=== PATIENT | female | born 1975 | race Two or more races ===

== ENCOUNTER 2016-11-09 22:56 | Emergency (ER) | payer SELFPAY ==
[2016-11-09] MEDS ORDERED: HYDROcodone/Acetaminophen 10/325 mg Tablet ONE (23:35)
[2016-11-09] MEDS ORDERED: Ibuprofen 800 MG TAB ONE (23:35)
--- NOTE | 2016-11-09 23:47 | RAD ---
LEFT ANKLE THREE VIEWS 11/09/16 Soft tissue swelling is present both medial and laterally. No acute fracture was appreciated. There is irregularity of the medial malleolus and the tip of the lateral malleolus, both of which appear m ore likely old than new. The articular surface of the talus seems smooth. The joint space is normal. IMPRESSION: Suggestion of old trauma to the ankle. Current soft tissue swelling bilaterally. POS: HOME
--- NOTE | 2016-11-10 00:02 | ERRECORD ---
[facility] EMERGENCY RECORD HPI ANKLE (23:28 JPIP) CHIEF COMPLAINT: Patient presents for evaluation of injury, to the left ankle, Patient presents for evaluation of pain, to the left ankle, Patient presents for evaluation of patient states she stepped in a hole and rolled her ankle. +felt a pop. HISTORIAN: History provided by patient. MECHANISM OF INJURY: Known mechanism, Mechanism of injury: stepped in a hole and rolled her ankle. LOCATION: Symptoms are generalized. QUALITY: Pain is dull in nature. SEVERITY: Current severity of pain rated as 6/10. 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 ASSOCIATED WITH: No associated foot pain, No associated hip pain, No associated knee pain, No associated open wounds, Associated with pain with ambulation, No associated proximal injury. EXACERBATED BY: Patient's condition exacerbated by walking, Patient's condition exacerbated by bearing weight. RELIEVED BY: Patient's condition relieved by nothing. ROS (23:29 JPIP) CONSTITUTIONAL: Historian denies chills, denies fever. MUSCULOSKELETAL: Historian reports arthralgias, reports joint stiffness, reports joint swelling, reports myalgias. SKIN: Historian denies rash, denies skin changes, denies skin lesions. NEUROLOGIC: Historian denies paresthesias. NOTES: All systems reviewed, negative except as described above. PAST MEDICAL HISTORY MEDICAL HISTORY: No past medical history. (23:07 SIJO) FEMALE SURGICAL HISTORY: TRACH PLACED AND REMOVED 2009. (23:07 SIJO) PSYCHIATRIC HISTORY: No previous psychiatric history. (23:07 SIJO) SOCIAL HISTORY: Patient denies alcohol use, Patient denies drug use, Patient currently uses tobacco, smokes cigarettes, Patient smokes 1/2 packs per day. (23:07 SIJO) NOTES: Nursing records reviewed, Medication list reviewed. (23:32 JPIP) KNOWN ALLERGIES ALLERGIES: (Unconfirmed) FOOD ALLERGIES: (Unconfirmed) Ibuprofen (Unconfirmed) LATEX ALLERGY? (Unconfirmed) Penicillamine (Unconfirmed) Penicillin G Sodium (Unconfirmed) &a-1R&a+25V*p+0X*k3242Z*c152B*c15G*c2P*p-0X&a-25V&a+1RName: Tiffany Gomez : F40 MedRec: [id number] AcctNum: [id number] Prepared: SatNov 09, 2016 23:59 by Interface Page 1 of 3 pMD [facility] EMERGENCY RECORD Penicillins CURRENT MEDICATIONS (23:06 SIJO) None VITAL SIGNS (23:04 SIJO) VITAL SIGNS: BP: 155/114, Pulse: 92, Resp: 18, Temp: 98.1 (Oral), Pain: 6, O2 sat: 97 on Room Air, Time: 11/09/2016 23:04. PHYSICAL EXAM (23:30 JPIP) CONSTITUTIONAL: Vital Signs Reviewed, Patient afebrile, Pulse normal, Blood pressure, hypertensive, Respiratory rate normal, Patient appears, in mild pain distress, Patient alert and oriented to person, place and time, Nursing notes reviewed. HEAD: Head exam included findings of head atraumatic, normocephalic. NECK: Neck exam included findings of normal range of motion. RESPIRATORY CHEST: Respiratory exam included findings of no respiratory distress. UPPER EXTREMITY: Upper extremity exam included findings of inspection normal, Range of motion normal. LOWER EXTREMITY: Left Ankle:, Ankle swelling, both medial and lateral soft tissue swelling with more swelling laterally, Ankle tenderness, Medial malleolar region, Lateral malleolar region, Ankle active range of motion limited, causes pain, Anlkle passive range of motion limited, causes pain, capillary refill less than 2 seconds, vii. Anterior Drawer Test normal, Left lower leg exam normal, no swelling, no tenderness. NEURO: Neuro exam findings include patient oriented to person, place and time, Speech normal. SKIN: Skin exam included findings of skin warm, dry, and normal in color. PSYCHIATRIC: Psychiatric exam included findings of patient oriented to person place and time, Normal affect. MEDICATION ADMINISTRATION SUMMARY Drug Name: Lemitar, Dose Ordered: 10 mg, Route: Oral, Status: Given, Time: 23:38 11/09/2016, Drug Name: Motrin, Dose Ordered: 800 mg, Route: Oral, Status: Given, Time: 23:37 11/09/2016, Detailed record available in Medication Service section. PROBLEM LIST No recorded problems DIAGNOSIS (23:32 JPIP) FINAL: PRIMARY: LEFT ankle sprain (unspecified). &a-1R&a+25V*p+0X*u3319K*c152B*c15G*c2P*p-0X&a-25V&a+1RName: Tiffany Gomez : F40 MedRec: [id number] AcctNum: [id number] Prepared: SatNov 09, 2016 23:59 by Interface Page 2 of 3 pMD [facility] EMERGENCY RECORD PRESCRIPTION (23:26 JPIP) ibuprofen: TABLET : 800 mg : ORAL : Quantity: 1 Unit: tab(s) Route: ORAL Schedule: every 8 hours PRN Dispense: 30 May substitute. Refills: No Refills . NOTES: No refills. Ultram: TABLET : 50 mg : ORAL : Quantity: 1-2 Unit: tab(s) Route: ORAL Schedule: every 8 hours PRN Dispense: 30 May substitute. Refills: No Refills . NOTES: for pain No refills. DISPOSITION PATIENT: Disposition Type: Discharge, Disposition: *Discharge Home, Condition: Good. (23:32 CARA) Patient left the department. (23:55 NAEL) Bedolla: CARA=DO Adames Joseph SIJO=SARAH Leal, Merrick &a-1R&a+25V*p+0X*q5653W*c152B*c15G*c2P*p-0X&a-25V&a+1RName: Tiffany Gomez : F40 MedRec: [id number] AcctNum: [id number] Prepared: SatNov 09, 2016 23:59 by Interface Page 3 of 3 pMD MTDD
--- NOTE | 2016-11-10 00:07 | PICIS ---
[facility] EMERGENCY RECORD TRIAGE (23:05 SIJO) TRIAGE NOTES: PT STATES SHE STEPPED INTO A HOLE AND FELT A "POP" TO L ANKLE - ANKLE SWOLLEN ON ARRIVAL. (23:05 SIJO) PATIENT: NAME: Tiffany Gomez, AGE: 40, GENDER: female, : Sat1975, TIME OF GREET: SatNov 09, 2016 22:56, PREFERRED LANGUAGE: Urdu, ETHNICITY: Not or , ECODE BILLING MAP: [facility], SSN: [id number], KG WEIGHT: 139.71, PHONE: , , , PERSON ID: [id number], PAYMENT: S[employer] Self Pay, PCP: none. (23:05 SIJO) Zip Code: [address]. (23:07) COMPLAINT: L ANKLE PAIN. (23:05 SIJO) ADMISSION: URGENCY: 4 Non Urgent, ADMISSION SOURCE: Home, TRANSPORT: CAR, BED: ER -04. (23:05 SIJO) IMMUNIZATIONS: Flu vaccine not up to date, Tetanus immunization up to date, Pneumococcal vaccine not up to date. (23:07 SIJO) SIRS SCORING: Heart Rate 55-109 (0), Temp range 96.8-101.1 (0), respiratory rate 12-24 (0), Mental Status altered: no (0), Infection or Suspected Infection: No. (23:07 SIJO) TRIAGE SCREENING: Patient denies suicidal ideation, Patient denies presence of domestic violence. (23:07 SIJO) LMP: Last menstrual period: 10/12/2016. (23:07 SIJO) PROVIDERS: TRIAGE NURSE: Merrick Leal RN. (23:05 SIJO) VITAL SIGNS: BP 155/114, Pulse 92, Resp 18, Temp 98.1, (Oral), Pain 6, O2 Sat 97, on Room Air, Time 11/09/2016 23:04. (23:04 SIJO) PREVIOUS VISIT ALLERGIES: Penicillins. (23:05 SIJO) Penicillins. (23:07 SIJO) KNOWN ALLERGIES ALLERGIES: (Unconfirmed) FOOD ALLERGIES: (Unconfirmed) Ibuprofen (Unconfirmed) LATEX ALLERGY? (Unconfirmed) Penicillamine (Unconfirmed) Penicillin G Sodium (Unconfirmed) Penicillins CURRENT MEDICATIONS (23:06 SIJO) None VITAL SIGNS (23:04 SIJO) VITAL SIGNS: BP: 155/114, Pulse: 92, Resp: 18, Temp: 98.1 (Oral), Pain: 6, O2 sat: 97 on Room Air, Time: 11/09/2016 23:04. NURSING ASSESSMENT: EXTREMITY LOWER (23:08 SIJO) CONSTITUTIONAL: Patient arrives, via hospital wheelchair, Gait steady, History obtained from patient, Patient appears comfortable, Patient cooperative, Patient alert, Oriented to person, place and time, Skin warm, Skin dry, Skin normal in color, Mucous membranes pink, Mucous membranes moist. &a-1R&a+25V*p+0X*f5517N*c152B*c15G*c2P*p-0X&a-25V&a+1RName: Tiffany Gomez : F40 MedRec: [id number] AcctNum: [id number] Prepared: Sat Nov 10, 2016 00:05 by Interface Page 1 of 6 pMD [facility] EMERGENCY RECORD LEFT LOWER EXTREMITY: Left lower extremity assessment findings include capillary refill less than 2 seconds, Skin color normal, Skin temperature warm, Distal sensation intact, Muscle tone normal, +2 edema present, Inspection findings include signs of trauma, Inspection findings include swelling. RIGHT LOWER EXTREMITY: Right lower extremity assessment findings include capillary refill less than 2 seconds, Skin color normal, Skin temperature warm, Distal sensation intact, Muscle tone normal. NURSING PROCEDURE: DISCHARGE NOTE (23:53 SIJO) DISCHARGE: Patient discharged to home, ambulating without assistance, driving self, accompanied by //partner, Simple or moderate discharge teaching performed, RICE-M method discussed - crutch walking, Prescriptions given and instructions on side effects given, Name of prescription(s) given: kaycee chun, Above person(s) verbalized understanding of discharge instructions and follow-up care, Patient treated and evaluated by physician, Notes: Discharge instructions reviewed and signed with good understanding. BELONGINGS: Belongings remain with patient, Valuables remain with patient. ORDER DETAILS Order Name: COLD THERAPY, Status: Done, Time: 23:08 11/09/2016, User: NAEL, - Ordered for: DO Adames Joseph, - Entered by: DO Adames Joseph - SatNov 09, 2016 23:08, - Quantity: 1, Order Name: CRUTCH ACQUISTION AND INSTRUCTION ED, Status: Done, Time: 23:34 11/09/2016, User: NAEL, - Ordered for: DO Adames Joseph, - Entered by: DO Adames Joseph - SatNov 09, 2016 23:26, - Quantity: 1, Order Name: IMMOBILIZE AFFECTED AREA ED, Status: Done, Time: 23:34 11/09/2016, User: NAEL, - Ordered for: DO Adames Joseph, - Entered by: DO Adames Joseph - SatNov 09, 2016 23:26, - Quantity: 1, Order Name: XR Ankle Lt 3 View STANDARD, Status: Active, Time: 23:06 11/09/2016, User: CARA, - Ordered for: DO Adames Joseph, - Entered by: DO Adames Joseph - SatNov 09, 2016 23:06, - Quantity: 1. MEDICATION ADMINISTRATION SUMMARY Drug Name: Dublin, Dose Ordered: 10 mg, Route: Oral, Status: Given, Time: 23:38 11/09/2016, Drug Name: Motrin, Dose Ordered: 800 mg, Route: Oral, Status: Given, Time: 23:37 11/09/2016, Detailed record available in Medication &a-1R&a+25V*p+0X*s1535J*c152B*c15G*c2P*p-0X&a-25V&a+1RName: Tiffany Gomez : F40 MedRec: [id number] AcctNum: [id number] Prepared: Sat Nov 10, 2016 00:05 by Interface Page 2 of 6 pMD [facility] EMERGENCY RECORD Service section. MEDICATION SERVICE Motrin: Order: Motrin (ibuprofen) - Dose: 800 mg : Oral Schedule: Now Ordered by: Humphrey Adames DO Entered by: Humphrey Adames DO SatNov 09, 2016 23:24 , Acknowledged by: Merrick Leal RN SatNov 09, 2016 23:34 Documented as given by: Josephine Ledezma RN SatNov 09, 2016 23:37 Patient, Medication, Dose, Route and Time verified prior to administration. Amount given: 800MG, Site: Medication administered P.O., Patient appears Awake and alert- acceptable, Correct patient, time, route, dose and medication confirmed prior to administration, Patient advised of actions and side-effects prior to administration, Allergies confirmed and medications reviewed prior to administration, Administered by SWALKER, Patient in position of comfort, Cart in lowest position, Family at bedside, Call light in reach, TEACHING ON MEDICATION WITH GOOD UNDERSTANDING. Dublin: Order: Dublin (hydrocodone bitartrate/acetaminophen) - Dose: 10 mg : Oral Schedule: Now Ordered by: Humphrey Adames DO Entered by: Humphrey Adames DO SatNov 09, 2016 23:24 , Acknowledged by: Merrick Leal RN SatNov 09, 2016 23:34 Documented as given by: Josephine Ledezma RN SatNov 09, 2016 23:38 Patient, Medication, Dose, Route and Time verified prior to administration. Amount given: 10/325 MG TAB, Site: Medication administered P.O., Patient appears Awake and alert- acceptable, Correct patient, time, route, dose and medication confirmed prior to administration, Patient advised of actions and side-effects prior to administration, Allergies confirmed and medications reviewed prior to administration, Administered by SWALKER, Patient in position of comfort, Cart in lowest position, Family at bedside, Call light in reach, RIDE AT BEDSIDE - TEACHING ON MEDICATION WITH GOOD UNDERSTANDING - DISCUSSED NO DRIVING OR OPERATING MACHINERY, MEDICATION MAY CAUSE CONSTIPATION - NARCOTIC. HPI ANKLE (23:28 [facility]) CHIEF COMPLAINT: Patient presents for evaluation of injury, to the left ankle, Patient presents for evaluation of pain, to the left ankle, Patient presents for evaluation of patient states she stepped in a hole and rolled her ankle. +felt a pop. HISTORIAN: History provided by patient. MECHANISM OF INJURY: Known mechanism, Mechanism of injury: stepped in a hole and rolled her ankle. LOCATION: Symptoms are generalized. QUALITY: Pain is dull in nature. SEVERITY: Current severity of pain rated as 6/10. 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 ASSOCIATED WITH: No associated foot pain, No associated hip pain, No associated knee pain, No associated open wounds, Associated with pain with ambulation, No associated proximal injury. EXACERBATED BY: Patient's condition exacerbated by walking, Patient's condition exacerbated by bearing weight. RELIEVED BY: Patient's condition relieved by nothing. ROS (23:29 JPIP) CONSTITUTIONAL: Historian denies chills, denies fever. MUSCULOSKELETAL: Historian reports arthralgias, reports joint stiffness, reports joint swelling, reports myalgias. SKIN: Historian denies rash, denies skin changes, denies skin lesions. NEUROLOGIC: Historian denies paresthesias. NOTES: All systems reviewed, negative except as described above. PAST MEDICAL HISTORY MEDICAL HISTORY: No past medical history. (23:07 SIJO) FEMALE SURGICAL HISTORY: TRACH PLACED AND REMOVED 2009. (23:07 SIJO) PSYCHIATRIC HISTORY: No previous psychiatric history. (23:07 SIJO) SOCIAL HISTORY: Patient denies alcohol use, Patient denies drug use, Patient currently uses tobacco, smokes cigarettes, Patient smokes 1/2 packs per day. (23:07 SIJO) NOTES: Nursing records reviewed, Medication list reviewed. (23:32 JPIP) PHYSICAL EXAM (23:30 JPIP) CONSTITUTIONAL: Vital Signs Reviewed, Patient afebrile, Pulse normal, Blood pressure, hypertensive, Respiratory rate normal, Patient appears, in mild pain distress, Patient alert and oriented to person, place and time, Nursing notes reviewed. HEAD: Head exam included findings of head atraumatic, normocephalic. NECK: Neck exam included findings of normal range of motion. RESPIRATORY CHEST: Respiratory exam included findings of no respiratory distress. UPPER EXTREMITY: Upper extremity exam included findings of inspection normal, Range of motion normal. LOWER EXTREMITY: Left Ankle:, Ankle swelling, both medial and lateral soft tissue swelling with more swelling laterally, Ankle tenderness, Medial malleolar region, Lateral malleolar region, Ankle active range of motion limited, causes pain, Anlkle passive range of motion &a-1R&a+25V*p+0X*t8319M*c152B*c15G*c2P*p-0X&a-25V&a+1RName: Tiffany Gomez : F40 MedRec: [id number] AcctNum: [id number] Prepared: Sat Nov 10, 2016 00:05 by Interface Page 4 of 6 pMD [facility] EMERGENCY RECORD limited, causes pain, capillary refill less than 2 seconds, vii. Anterior Drawer Test normal, Left lower leg exam normal, no swelling, no tenderness. NEURO: Neuro exam findings include patient oriented to person, place and time, Speech normal. SKIN: Skin exam included findings of skin warm, dry, and normal in color. PSYCHIATRIC: Psychiatric exam included findings of patient oriented to person place and time, Normal affect. EVENTS TRANSFER: Triage to Emergency Emergency Room -04. (SatNov 09, 2016 23:05 SIJO) Removed from Emergency Emergency Room -04. (23:55 SIJO) O2SAT INTERPRETATION (23:06 JPIP) O2SAT: Single pulse oximetry, Oxygen saturation 97%, on room air, Oxygen saturation interpretation: Normal, No intervention required. PROBLEM LIST No recorded problems DIAGNOSIS (23:32 JPIP) FINAL: PRIMARY: LEFT ankle sprain (unspecified). DISPOSITION PATIENT: Disposition Type: Discharge, Disposition: *Discharge Home, Condition: Good. (23:32 JPIP) Patient left the department. (23:55 SIJO) INSTRUCTION (23:27 JPIP) DISCHARGE: ANKLE SPRAIN WITH XRAY, AIR STIRRUP ANKLE SPLINT, CRUTCH WALKING. SPECIAL: Follow up with Primary Care Physician within 72 hours Return to the Emergency Department for increased symptoms problems or concerns Alphabet exercises to begin in 3-4 days. PRESCRIPTION (23:26 JPIP) ibuprofen: TABLET : 800 mg : ORAL : Quantity: 1 Unit: tab(s) Route: ORAL Schedule: every 8 hours PRN Dispense: 30 May substitute. Refills: No Refills . NOTES: No refills. Ultram: TABLET : 50 mg : ORAL : Quantity: 1-2 Unit: tab(s) Route: ORAL Schedule: every 8 hours PRN Dispense: 30 May substitute. Refills: No Refills . NOTES: for pain No refills. IMAGING *DISCHARGE INSTRUCTIONS RECEIPT: Image captured from scanner. &a-1R&a+25V*p+0X*z3096Z*c152B*c15G*c2P*p-0X&a-25V&a+1RName: Tiffany Gomez : F40 MedRec: [id number] AcctNum: [id number] Prepared: Sat Nov 10, 2016 00:05 by Interface Page 5 of 6 pMD [facility] EMERGENCY RECORD (23:53 SIJO) DURAMEDIC: Image captured from scanner. (23:54 SIJO) Image captured from scanner. (23:54 SIJO) *SUPPLY CHARGE SHEET: Image captured from scanner. (23:54 SIJO) Bedolla: JPIP=DO Adames Joseph SIJO=SARAH Leal, Merrick &a-1R&a+25V*p+0X*b3359U*c152B*c15G*c2P*p-0X&a-25V&a+1RName: Tiffany Gomez : F[birth year] MedRec: [id number] AcctNum: [id number] Prepared: Sat Nov 10, 2016 00:05 by Interface Page 6 of 6 pMD MTDD
== END 2016-11-09 23:50 | disposition home or self-care (01) ==
LOC: BURERS 22:56
DX: S93.402A Sprain of unspecified ligament of left ankle, initial encounter (principal); F17.210 Nicotine dependence, cigarettes, uncomplicated; X58.XXXA Exposure to other specified factors, initial encounter
CPT/HCPCS: 99283

== ENCOUNTER 2017-03-04 10:52 | Emergency (ER) | payer OTHER, SELFPAY ==
--- NOTE | 2017-03-04 19:33 | RAD ---
RIGHT HAND THREE VIEWS: Date: 03-04-17 FINDINGS: No fracture was apparent. The fingers, metacarpals and carpal bones all appear normal. IMPRESSION: No acute finding. POS: HOME
== END 2017-03-04 11:29 | disposition home or self-care (01) ==
LOC: BURERS 10:52
DX: S60.221A Contusion of right hand, initial encounter (principal); F17.210 Nicotine dependence, cigarettes, uncomplicated; W54.1XXA Struck by dog, initial encounter

== ENCOUNTER 2017-12-05 15:10 | Emergency (ER) | payer OTHER, SELFPAY ==
[2017-12-05 15:40] LABS: #Basophils 0.1 thou/uL (0.0-0.2); #Eosinphils 0.1 thou/uL (0.0-0.7); #Lymphocytes 2.6 thou/uL (1.20-3.40); #Monocytes 0.4 thou/uL (0.11-0.59); #Neutrophils 5.5 thou/uL (1.40-6.50); %Basophils 0.8 % (0.0-1.0); %Eosinophils 1.3 % (0.0-10.0); %Lymphocytes 29.6 % (21.0-51.0); %Monocytes 4.7 % (0.0-10.0); %Neutrophils 63.5 % (42.0-75.0); Hemoglobin 13.4 g/dL (12.0-16.0); Mean Corpuscular HGB CONC 34.3 g/dL (32.0-36.0); Mean Corpuscular Volume 93.3 fl (81.0-99.0); Mean Platelet Volume 7.8 fL (7.4-10.4); Platelet Count 198 thou/uL (130-400); White Blood Cell (WBC) Count 8.6 thou/uL (4.8-10.8)
[2017-12-05] MEDS ORDERED: Acetaminophen 500 MG TAB ONE ×2 (15:51)
[2017-12-05 15:52] LABS: Anion Gap 13 mmol/L (10-20); BUN (Urea Nitrogen) 12 mg/dL (7.0-18.7); Calc. Creatinine Clearance 0 mL/min (70-130); Calcium 8.5 mg/dL (7.8-10.44); Carbon Dioxide 24 mmol/L (22-29); Chloride 105 mmol/L (98-107); Estimated GFR-MDRD 80; Glucose 130 mg/dL (70-105); Potassium 3.6 mmol/L (3.5-5.1); Sodium 138 mmol/L (136-145)
== END 2017-12-05 16:24 | disposition home or self-care (01) ==
LOC: BURERS 15:10
DX: S94.91XA Injury of unspecified nerve at ankle and foot level, right leg, initial encounter (principal); F17.210 Nicotine dependence, cigarettes, uncomplicated
CPT/HCPCS: 36415; 80048; 85025; 85379; 99284

== ENCOUNTER 2020-08-03 13:41 | Emergency (ER) | payer BC ==
--- NOTE | 2020-08-03 14:55 | RAD ---
LEFT ANKLE THREE VIEWS: 08/03/20 Some soft tissue swelling is seen around the ankle, but no acute bony fracture was seen. The articula r surfaces are normal in appearance. Bony protuberance and lucency associated with the medial malleol us seems most likely due to old trauma. IMPRESSION: No acute bony findings. Soft tissue swelling. POS: HOME
== END 2020-08-03 15:46 | disposition home or self-care (01) ==
LOC: BURERS 13:41
DX: M76.62 Achilles tendinitis, left leg (principal); J45.909 Unspecified asthma, uncomplicated; F17.210 Nicotine dependence, cigarettes, uncomplicated